=== PATIENT | female | born 1940 | race Caucasian/White ===

== ENCOUNTER 2017-01-07 11:37 | Day surgery (SDC) | payer MEDICARE, BC, MEDICAID ==
[~2017-01-07] VITALS: Ht 165.1 cm; Wt 136.3 kg
--- NOTE | 2017-01-07 08:47 | NUR ---
NN UNABLE TO MAKE CONTACT WITH PT YESTERDAY IN REGARDS TO HER PROCEDURE FOR TODAY. CALLED CONTACT NUMBER LISTED IN HER DEMOGRAPHICS IN OUR COMPUTER SYSTEM. THERE WAS NO OTHER NUMBER LISTED FOR THIS PT AND THE NUMBER I CALLED WAS A CRYSTAL FROM [employer]. I WAS UNABLE TO MAKE OUT WHAT WAS ON HER ANSWERING MACHINE. I ATTEMPTED TO CALL DR. ESCOBAR OFFICE TO OBTAIN ANOTHER CONTACT NUMBER FOR THIS BUT HAD TO LEAVE A VOICE MAIL AND DID NOT GET A RETURN PHONE CALL YESTERDAY. I DID CALL BACK THE ONLY NUMBER I HAD AND LEFT A VERY DETAILED MESSAGE REGARDING NEEDING TO GIVE INFORMATION ABOUT A PT HAVING SURGERY. I LEFT RETURN NUMBERS AND ASKED THEM TO PLEASE CALL ME, BUT DID NOT HEAR ANYTHING BACK YESTERDAY. TODAY DR. ESCOBAR'S OFFICE DID CALL AND LEFT A MESSAGE WITH ANOTHER NUMBER FOR THE PT. WILL ATTEMPT TO CONTACT THE PT AT THIS NUMBER.
--- NOTE | 2017-01-07 08:59 | NUR ---
NN ATTEMPTED TO REACH SOMEONE AT THE NUMBER GIVEN TO ME BY DR. ESCOBAR'S OFFICE. THERE WAS NO ANSWER AND NO VOICE MAIL WAS AVAILABLE.
[~2017-01-07 11:37] MED LIST: ALLO300T2 PO; ASPI-557 PO; ATOR20TA59 PO; DIGO125T17 PO; FENTANYL 100mcg/2ml INJECTION ONE; FURO40TA5 PO; GABA-338 PO; HYDR-3989 PO; LIDOCAINE JELLY 2% 30ml TUBE ONE; LISI-625 PO; LORA1TAB3 PO; MAGN400T6 PO; MELA3TAB30 PO; METF850T2 PO; METO50TA5 PO; RANI150T12 PO; SERT50TA12 PO; TOLT4CAP13 PO
--- OUTSIDE RECORDS SUMMARY | 2017-01-07 11:42 | XMS REPORT | Continuity of Care Document ---
Author Author [facility] Organization [facility] Address Unknown Phone Unavailable Allergies Active Description Code Type Severity Reaction Onset Reported/Identified Relationship to Patient Clinical Status Yes Iron Drug Allergy uNspecfied 10/07/2009 Yes Iron Drug Allergy N/A uNspecfied 10/07/2009 Yes Dextran Drug Allergy Adverse Reaction 06/06/2010 Yes Dextran Drug Allergy N/A Adverse Reaction 06/06/2010 Yes No Known Food Allergies Food Allergy 12/20/2012 Yes No Allergy Information Drug Allergy N/A N/A 03/15/2014 Medications Problems Date Dx Coded Attending Type Code Diagnosis Diagnosed By 10/20/2012 Huber Moe MD Final 112.3 CUTANEOUS CANDIDIASIS 10/20/2012 Huber Moe MD Final 250.00 DM2/NOS UNCOMP NSU 10/20/2012 Huber Moe MD Final 272.4 HYPERLIPIDEMIA NEC NOS 10/20/2012 Huber Moe MD Final 401.9 HYPERTENSION NOS 10/20/2012 Huber Moe MD 782.0 SKIN SENSATION DISTURB 10/20/2012 Huber Moe MD Admitting 782.1 NONSP SKIN ERUPTION NEC 11/12/2012 Tanya Aceves MD Final 250.00 DM2/NOS UNCOMP NSU 11/12/2012 Tanya Aceves MD Final 274.9 GOUT NOS 11/12/2012 Tanya Aceves MD Final 278.01 MORBID OBESITY 11/12/2012 Tanya Aceves MD Final 300.02 GENERAL ANXIETY DISORD 11/12/2012 Tanya Aceves MD Final 311 DEPRESSIVE DISORDER NEC 11/12/2012 Tanya Aceves MD Final 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 11/12/2012 Tanya Aceves MD Final 401.9 HYPERTENSION NOS 11/12/2012 Tanya Aceves MD Final 427.31 ATRIAL FIBRILLATION 11/12/2012 Tanya Aceves MD Final 428.0 CHF NOS 11/12/2012 Tanya Aceves MD Final 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 11/12/2012 Tanya Aceves MD Final 553.3 DIAPHRAGMATIC HERNIA 11/12/2012 Tanya Aceves MD Final V10.05 HX LARGE INTESTINE CA 11/12/2012 Tanya Aceves MD Final V58.61 LONG-TERM ANTICOAG USE 11/12/2012 Tanya Aceves MD Final V67.09 SURGERY FOLLOW-UP NEC 11/12/2012 Tanya Aceves MD Final V85.43 BMI 50.0-59.9 ADULT 12/06/2012 Admitting V76.12 SCREEN MAMMOGRAPHY NEC 12/20/2012 Nain Simmons MD Final 250.00 DM2/NOS UNCOMP NSU 12/20/2012 Nain Simmons MD Final 401.9 HYPERTENSION NOS 12/20/2012 Nain Simmons MD Final 459.81 VENOUS INSUFFICIENCY NOS 12/20/2012 Nain Simmons MD Final 496 CHRONIC AIRWAY OBSTR NEC 12/20/2012 Nain Simmons MD Final 790.92 ABN COAGULATION PROFILE 12/20/2012 Nain Simmons MD Final 922.1 CONTUSION OF CHEST WALL 12/20/2012 Nain Simmons MD External E928.9 ACCIDENT NOS 12/20/2012 Nain Simmons MD Final V58.61 LONG-TERM ANTICOAG USE 01/11/2013 Admitting V76.12 SCREEN MAMMOGRAPHY NEC 01/17/2013 Admitting V76.12 SCREEN MAMMOGRAPHY NEC 02/02/2013 Admitting V76.12 SCREEN MAMMOGRAPHY NEC 12/18/2013 Sohail Hua MD Final 250.00 DM2/NOS UNCOMP NSU 12/18/2013 Sohail Hua MD Final 278.01 MORBID OBESITY 12/18/2013 Sohail Hua MD Final 401.9 HYPERTENSION NOS 12/18/2013 Sohail Hua MD Final 427.31 ATRIAL FIBRILLATION 12/18/2013 Sohail Hua MD Final 428.0 CHF NOS 12/18/2013 Sohail Hua MD Final 786.50 CHEST PAIN NOS 12/18/2013 Sohail Hua MD Final V15.81 HX NONCOMPLIANCE MED TX 03/15/2014 Oumou Trevizo MD Final 250.00 DM2/NOS UNCOMP NSU 03/15/2014 Oumou Trevizo MD Final 401.9 HYPERTENSION NOS 03/15/2014 Oumou Trevizo MD W Final 427.31 ATRIAL FIBRILLATION 03/15/2014 Oumou Trevizo MD Final 428.0 CHF NOS 03/15/2014 Oumou Trevizo MD Final 473.9 CHRONIC SINUSITIS NOS 03/15/2014 Oumou Trevizo MD 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 Visit Date/Time Discharge Status Pt. Type Provider Facility Loc./Unit Complaint [id number] 03/15/2014 14:20:00 2013 16:50:00 DIS Emergency Oumou Trevizo MD [facility] [id number] 12/18/2013 16:55:00 2013 18:24:00 DIS Emergency Sohail Hua MD [facility] [id number] 02/02/2013 14:00:00 2012 23:59:59 CLS Outpatient [id number] 01/17/2013 14:10:00 2012 23:59:59 CLS Outpatient [id number] 01/11/2013 11:30:00 2012 23:59:59 CLS Outpatient [id number] 12/20/2012 13:58:00 2012 15:54:00 DIS Emergency Nain Simmons MD [facility] [id number] 12/06/2012 15:20:00 2012 23:59:59 CLS Outpatient [id number] 11/12/2012 06:20:00 2012 10:00:00 DIS Outpatient Tanya Aceves MD [facility] [id number] 10/20/2012 13:39:00 2011 16:52:00 DIS Emergency Huber Moe MD [facility]
--- OUTSIDE RECORDS SUMMARY | 2017-01-07 11:42 | XMS REPORT | Referral Summary ---
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 Name Role Phone RitchieVictor M Primary Care Physician [phone] Encounter VC Date(s): 11/05/14 - 11/09/[id number] [place] [address] Discharge Disposition: Home or Self Care Attending Physician: Lashonda Heredia DO Admitting Physician: Sarmad Camacho MD Referring Physician: Self Referred, X Vital Signs Most recent to 1 2 oldest [Reference Range]: Temperature Oral 36.4 degC [35.8-37.3 degC] (11/09/14 11:11 AM) Temperature Tympanic 37.2 degC 37.2 degC [36.6-38.1 degC] (11/07/14 8:00 AM) (11/07/14 8:00 AM) Temperature Temporal 36.9 degC Artery [36.3-37.8 (11/07/14 4:45 PM) degC] Apical Heart Rate 77 bpm [60-100 bpm] (11/09/14 1:07 PM) Peripheral Pulse 91 bpm Rate [60-100 bpm] (11/09/14 11:11 AM) Heart Rate Monitored 100 bpm 101 bpm [60-100 bpm] (11/09/14 1:13 PM) *HI* (11/09/14 1:13 PM) Respiratory Rate 20 br/min [14-20 br/min] (11/09/14 1:13 PM) Blood Pressure 137/78 mmHg [90-140/60-90 mmHg] (11/09/14 11:11 AM) Mean Arterial 90 mmHg Pressure, Cuff (11/07/14 11:00 AM) Most recent to 1 2 oldest [Reference Range]: SpO2 95 % (11/09/14 11:11 AM) Problem List Condition Effective Dates Status Health Status Informant Acute Active pain(Confirmed) At risk for Active infection(Confirmed) 1 At risk of pressure Active sore(Confirmed) Afib(Confirmed) Active Chronic Active CHF(Confirmed) Diabetes(Confirmed) Active Heart Active failure(Confirmed) HTN Active (hypertension)(Confi rmed) Impaired gas Active exchange(Confirmed)2 Tissue perfusion Active alteration(Confirmed )3 Lower extremity Active venous stasis(Confirmed) VRE(Confirmed)4 < 08/31/14 Resolved 1Problem added automatically by system based on initiation of At Risk for Infection in Nutrition Plan of Care 2Problem added automatically by system based on initiation of Impaired Gas Exchange Plan of Care 3Problem added automatically by system based on initiation of Tissue Perfusion Cerebral Plan of Care 4VRE (perineal wound) culture dated 12/07/2013 - no new cultures - RESOLVED. Allergies, Adverse Reactions, Alerts Substance Reaction Severity Status Feosol Iron1 Medium Active 1loweres blood pressure Medications albuterol 5 mg/mL (0.5%) inhalation solution 0.5 mL, NEB, [id number], # 60 mL, 0 Refill(s), other reason (Rx) Start Date: 11/09/14 Status: Ordered allopurinol 300 mg, Oral, Daily, 0 Refill(s) Start Date: 08/30/14 Status: Ordered Benadryl 25 mg, Oral, q8hr, as needed for itching, 0 Refill(s) Start Date: 11/05/14 Status: Ordered digoxin 125 mcg (0.125 mg) oral tablet 1 tabs, Oral, Daily, # 30 tabs, 0 Refill(s), other reason (Rx) Start Date: 11/09/14 Status: Ordered gabapentin 300 mg, Oral, BID, 0 Refill(s) Start Date: 08/30/14 Status: Ordered glipiZIDE 5 mg, Oral, Daily, 0 Refill(s) Start Date: 11/05/14 Status: Ordered HYDROcodone-acetaminophen 5 mg-325 mg oral tablet 2 tabs, Oral, q4hr, as needed for pain, 1-2 tablets by mouth every 4 hours as needed for pain, 0 Refill(s) Special Instructions: 1-2 tablets by mouth every 4 hours as needed for pain Start Date: 09/05/14 Status: Ordered Imodium A-D 2 mg, Oral, q6hr, loose stools, 0 Refill(s) Start Date: 10/02/14 Status: Ordered Macrobid 100 mg oral capsule 1 caps, Oral, BID, # 14 caps, 0 Refill(s), other reason (Rx) Start Date: 11/09/14 Stop Date: 11/17/14 Status: Ordered magnesium oxide 400 mg, Oral, BID, 0 Refill(s) Start Date: 11/05/14 Status: Ordered metFORMIN 850 mg, Oral, BID, 0 Refill(s) Start Date: 08/30/14 Status: Ordered metoprolol tartrate 50 mg oral tablet Oral, BID, 0 Refill(s) Start Date: 11/09/14 Status: Ordered MiraLax 17 g, Oral, BID, Constipation, 0 Refill(s) Start Date: 11/05/14 Status: Ordered sertraline 75 mg, Oral, Daily, 0 Refill(s) Start Date: 08/30/14 Status: Ordered simvastatin 20 mg, Oral, Bedtime (once a day), 0 Refill(s) Start Date: 08/30/14 Status: Ordered Tylenol Extra Strength 1,000 mg, Oral, TID, as needed for pain, 0 Refill(s) Start Date: 08/30/14 Status: Ordered warfarin 5 mg, Oral, Daily, 0 Refill(s) Start Date: 08/30/14 Status: Ordered Xanax 0.25 mg, Oral, as needed for anxiety, give 0.25mg during the night as needed., 0 Refill(s) Special Instructions: give 0.25mg during the night as needed. Start Date: 08/30/14 Status: Ordered Xanax 0.25 mg, Oral, QID, 0600, 1000, 1400, 1800, 0 Refill(s) Special Instructions: 0600, 1000, 1400, 1800 Start Date: 10/02/14 Status: Ordered Results Hematology Most recent to 1 oldest [Reference Range]: WBC [4.8-10.8 K/uL] 9.6 K/uL (11/09/14 5:24 AM) RBC [4.00-5.20 M/uL] 4.05 M/uL (11/09/14 5:24 AM) Hgb [12.0-16.0 11.8 gm/dL gm/dL] *LOW* (11/09/14 5:24 AM) Hct [37.0-47.0 %] 39.6 % (11/09/14 5:24 AM) MCV [82.0-99.0 fL] 97.8 fL (11/09/14 5:24 AM) MCH [27.0-32.0 pg] 29.1 pg (11/09/14 5:24 AM) MCHC [32.0-36.0 29.8 gm/dL gm/dL] *LOW* (11/09/14 5:24 AM) RDW [11.5-14.5 %] 15.3 % *HI* (11/09/14 5:24 AM) Platelet [150-400 222 K/uL K/uL] (11/09/14 5:24 AM) MPV [9.4-12.4 fL] 11.1 fL (11/09/14 5:24 AM) Immature 0.2 % Granulocytes (11/09/14 5:24 AM) [0.0-1.0 %] Neutrophils [51-75 71 % %] (11/09/14 5:24 AM) Lymphocytes [20-46 13 % %] *LOW* (11/09/14 5:24 AM) Monocytes [4-11 %] 12 % *HI* (11/09/14 5:24 AM) Eosinophils [0-4 %] 3 % (11/09/14 5:24 AM) Basophils [0-2 %] 0 % (11/09/14 5:24 AM) Neutro Absolute 6.79 THOUS [1.90-7.00 THOUS] (11/09/14 5:24 AM) Lymph Absolute 1.28 THOUS [0.80-3.30 THOUS] (11/09/14 5:24 AM) Catron Absolute 1.16 THOUS [0.30-1.00 THOUS] *HI* (11/09/14 5:24 AM) Eos Absolute 0.32 THOUS [0.00-0.50 THOUS] (11/09/14 5:24 AM) Baso Absolute 0.04 THOUS [0.00-0.20 THOUS] (11/09/14 5:24 AM) Nucleated RBC 0.0 /100 WBC Automated [0 /100 (11/07/14 2:39 AM) WBC] Differential Scanned Slide (11/05/14 9:44 AM) Coagulation Most recent to 1 oldest [Reference Range]: INR [0.9-1.2] 3.4 *HI* (11/09/14 5:24 AM) Chemistry Most recent to 1 oldest [Reference Range]: Sodium Lvl [136-144 136 mEq/L mEq/L] (11/09/14 5:24 AM) Potassium Lvl 4.1 mEq/L [3.6-5.1 mEq/L] (11/09/14 5:24 AM) Chloride [99-109 95 mEq/L mEq/L] *LOW* (11/09/14 5:24 AM) CO2 [22-32 mEq/L] 34 mEq/L *HI* (11/09/14 5:24 AM) AGAP [3-20] 7 (11/09/14 5:24 AM) BUN [4-20 mg/dL] 9 mg/dL (11/09/14 5:24 AM) Glucose Lvl [70-100 107 mg/dL mg/dL] *HI* (11/09/14 5:24 AM) Creatinine Lvl 0.45 mg/dL [0.44-1.03 mg/dL] (11/09/14 5:24 AM) eGFR [>60] >60 3 (11/09/14 5:24 AM) Calcium Lvl 8.7 mg/dL [8.6-10.0 mg/dL] (11/09/14 5:24 AM) Albumin Lvl [3.5-4.8 3.1 gm/dL gm/dL] *LOW* (11/06/14 3:38 AM) Total Protein 6.9 gm/dL [6.1-7.9 gm/dL] (11/05/14 9:44 AM) Globulin [1.9-4.3 3.2 gm/dL gm/dL] (11/05/14 9:44 AM) ALT [14-54 unit/L] 18 unit/L (11/05/14 9:44 AM) AST [15-41 unit/L] 19 unit/L (11/05/14 9:44 AM) Alk Phos [26-104 171 unit/L unit/L] *HI* (11/05/14 9:44 AM) Bili Total [0.2-1.2 1.3 mg/dL 2 mg/dL] *HI* (11/05/14 9:44 AM) Magnesium Lvl 2.1 mg/dL [1.8-2.5 mg/dL] (11/06/14 3:38 AM) Phosphorus [2.4-4.7 4.5 mg/dL 1 mg/dL] (11/06/14 3:38 AM) BNP [0-99 pg/mL] 248 pg/mL *HI* (11/05/14 9:44 AM) Troponin [<0.06 <0.05 ng/mL ng/mL] (11/07/14 2:41 PM) Lactic Acid Lvl 1.4 mEq/L [0.5-2.2 mEq/L] (11/05/14 12:15 PM) Blood Glucose, 62 mg/dL Capillary [74-106 *LOW* mg/dL] (11/09/14 12:56 PM) Blood Glucose, 62 mg/dL Capillary [70-100 *LOW* mg/dL] (11/09/14 12:56 PM) 1Result Comment: High dosages of liposomal Amphotericin B (AmBisome) therapy or other drug preparations that use a liposomal envelope to facilitate drug delivery may cause falsely elevated results for phosphorus. 2Result Comment: Naproxen, specifically the metabolite O-desmethylnaproxen, may cause spurious elevation in Total Bilirubin levels. 3Result Comment: Multiply eGFR results by 1.21 for race. Therapeutic Drug Monitoring Most recent to 1 oldest [Reference Range]: Digoxin Lvl 1.6 [0.8-2.0] (11/07/14 2:39 AM) Urinalysis Most recent to 1 oldest [Reference Range]: UA Color Dk Yellow (11/05/14 4:47 PM) UA Appear Clear (11/05/14 4:47 PM) UA pH [5.0-8.0] 7.0 (11/05/14 4:47 PM) UA Leuk Est Negative [Negative] (11/05/14 4:47 PM) UA Nitrite Positive [Negative] *ABN* (11/05/14 4:47 PM) UA Protein Trace [Negative] *ABN* (11/05/14 4:47 PM) UA Glucose Negative [Negative] (11/05/14 4:47 PM) UA Ketones Trace [Negative] *ABN* (11/05/14 4:47 PM) UA Urobilinogen Negative [<1.0] (11/05/14 4:47 PM) UA Bili [Negative] Negative (11/05/14 4:47 PM) UA Blood [Negative] Negative (11/05/14 4:47 PM) UA Spec Grav 1.027 [1.003-1.030] (11/05/14 4:47 PM) Type Catheter (11/05/14 4:47 PM) UA WBC [0-4] 0-2 (11/05/14 4:47 PM) Epithelial Cells 2-5 (11/05/14 4:47 PM) UA Bacteria Numerous *ABN* (11/05/14 4:47 PM) UA Hyal Cast [0-3] 1-3 (11/05/14 4:47 PM) UA Mucous Present (11/05/14 4:47 PM) Microbiology Reports PROCEDURE: Urine Culture STATUS: Modified/Amended/Cor BODY SITE: SOURCE: Urine COLLECTED DATE/TIME: 11/05/14 4:47 PM ORGANISM:Escherichia coli PROCEDURE: Blood Culture STATUS: Order in Progress BODY SITE: SOURCE: Blood COLLECTED DATE/TIME: 11/05/14 12:15 PM PROCEDURE: Blood Culture1 STATUS: Order in Progress BODY SITE: SOURCE: Blood COLLECTED DATE/TIME: 11/05/14 12:15 PM ORGANISM:Propionibacterium/Corynebacterium species INTERPRETIVE DATA 1Critical value called to and read back by Naveed Hopkins Rn in CCU, at 11/06/2014 13:32 Immunizations No data available for this section Procedures Procedure Date Related Diagnosis Body Site Replacement, complete, of a peripherally 11/09/14 inserted central venous catheter (PICC), without subcutaneous port or pump, through same venous access 25-OCT-2014 00:38:50<$> Resection1 1of large colon Social History Social History Type Response Smoking Status Never smoker Assessment and Plan No data available for this section
--- OUTSIDE RECORDS SUMMARY | 2017-01-07 11:42 | XMS REPORT | Referral Summary ---
Author Organization Unknown Address Unknown Phone Unavailable Care Team Providers Care Freight Caller Name Role Phone Victor M Dugan Primary Care Physician [phone] Encounter VC Date(s): 12/19/14 - 12/22/[id number] [place] [address] Discharge Diagnosis: Altered mental status Discharge Diagnosis: Afib Discharge Diagnosis: Obesity hypoventilation syndrome Discharge Diagnosis: Acute respiratory failure Discharge Diagnosis: HTN (hypertension) Discharge Diagnosis: Diabetes Discharge Diagnosis: Hyperkalemia Discharge Diagnosis: HCAP (healthcare-associated pneumonia) Discharge Diagnosis: Chronic CHF Discharge Diagnosis: Impaired gas exchange Discharge Disposition: Home or Self Care Attending Physician: Lashonda Heredia DO Admitting Physician: Lashonda Heredia DO Vital Signs Most recent to 1 oldest [Reference Range]: Temperature Oral 36.9 degC [35.8-37.3 degC] (12/22/14 11:49 AM) Temperature Temporal 36.5 degC Artery [36.3-37.8 (12/21/14 11:00 AM) degC] Apical Heart Rate 91 bpm [60-100 bpm] (12/22/14 2:14 PM) Peripheral Pulse 101 bpm Rate [60-100 bpm] *HI* (12/22/14 11:49 AM) Heart Rate Monitored 95 bpm [60-100 bpm] (12/22/14 12:59 PM) Respiratory Rate 18 br/min [14-20 br/min] (12/22/14 12:59 PM) Blood Pressure 140/88 mmHg [90-140/60-90 mmHg] (12/22/14 11:49 AM) Mean Arterial 128 mmHg Pressure, Cuff (12/21/14 8:00 AM) Most recent to 1 oldest [Reference Range]: SpO2 95 % (12/22/14 11:49 AM) Problem List Condition Effective Dates Status Health Status Informant Acute Active pain(Confirmed) Acute respiratory Active failure(Confirmed) Altered mental Active status(Confirmed) At risk for activity Active intolerance(Confirme d)1 At risk for Active infection(Confirmed) 2 At risk of pressure Active sore(Confirmed) Afib(Confirmed) Active Chronic Active CHF(Confirmed) Diabetes(Confirmed) Active Obesity Active hypoventilation syndrome(Confirmed) HCAP Active (healthcare-associat ed pneumonia)(Confirmed ) Heart Active failure(Confirmed) Hyperkalemia(Confirm Active ed) HTN Active (hypertension)(Confi rmed) Impaired gas Active exchange(Confirmed)3 Tissue perfusion Active alteration(Confirmed )4 Lower extremity Active venous stasis(Confirmed) VRE(Confirmed)5 < 08/31/14 Resolved 1Problem added automatically by system based on initiation of At Risk for Activity Intolerance Plan of Care 2Problem added automatically by system based on initiation of At Risk for Infection in Nutrition Plan of Care 3Problem added automatically by system based on initiation of Impaired Gas Exchange Plan of Care 4Problem added automatically by system based on initiation of Tissue Perfusion Cerebral Plan of Care 5VRE (perineal wound) culture dated 12/07/2013 - no new cultures - RESOLVED. Allergies, Adverse Reactions, Alerts Substance Reaction Severity Status Feosol Iron1 Medium Active 1loweres blood pressure Medications albuterol 2.5 mg/3 mL (0.083%) inhalation solution 3 mL, Inhalation, q4hr, while awake, 0 Refill(s) Special Instructions: while awake Start Date: 12/19/14 Status: Ordered allopurinol 300 mg, Oral, Daily, 0 Refill(s) Start Date: 08/30/14 Status: Ordered Benadryl 25 mg, Oral, q8hr, as needed for itching, 0 Refill(s) Start Date: 11/05/14 Status: Ordered Yuval Moist Barrier Cream Yuval Moist Barrier Cream, 1 werner, Topical, apply to bilateral lower extremities daily and to coccyx three times daily, 0 Refill(s) Special Instructions: apply to bilateral lower extremities daily and to coccyx three times daily Start Date: 12/19/14 Status: Ordered digoxin 125 mcg, Oral, Daily, 0 Refill(s) Start Date: 12/19/14 Status: Ordered gabapentin 300 mg, Oral, BID, [...] for pain Start Date: 09/05/14 Status: Ordered Klor-Con M20 20 mEq, Oral, Daily, for 3 days for supplement. Starting 12-19-14, 0 Refill(s) Special Instructions: for 3 days for supplement. Starting 12-19-14 Start Date: 12/19/14 Status: Ordered Lasix 40 mg oral tablet 1 tabs, Oral, BID, 0 Refill(s) Start Date: 12/22/14 Status: Ordered LORazepam 0.5 mg oral tablet 1 mg, Oral, BID, as needed for anxiety, for severe anxiety. Do not overuse, concern for confusion and respiratory depression, X 30 days, # 30 tabs, 0 Refill (s), other reason (Rx) Special Instructions: for severe anxiety. Do not overuse, concern for confusion and respiratory depression Start Date: 12/22/14 Stop Date: 01/21/15 Status: Ordered magnesium oxide 400 mg, Oral, BID, 0 Refill(s) Start Date: 11/05/14 Status: Ordered metFORMIN 850 mg, Oral, BID, 0 Refill(s) Start Date: 08/30/14 Status: Ordered metoprolol tartrate 50 mg oral tablet 1 tabs, Oral, BID, 0 Refill(s) Start Date: 11/09/14 Status: Ordered miconazole 2% topical cream 1 werner, Topical, TID, apply to area under RT breast three times daily until healed, 0 Refill(s) Special Instructions: apply to area under RT breast three times daily until healed Start Date: 12/19/14 Status: Ordered nystatin 100,000 units/g topical powder 1 werner, Topical, TID, apply under breas and abd folds three times daily until healed, 0 Refill(s) Special Instructions: apply under breas and abd folds three times daily until healed Start Date: 12/19/14 Status: Ordered omeprazole 20 mg, Oral, Daily, 0 Refill(s) Start Date: 12/19/14 Status: Ordered Robitussin Cough + Chest Congestion DM 10 mL, Oral, q4hr, as needed for cough, 0 Refill(s) Start Date: 12/19/14 Status: Ordered sertraline 75 mg, Oral, Daily, 0 Refill(s) Start Date: 08/30/14 Status: Ordered simvastatin 20 mg, Oral, Bedtime (once a day), 0 Refill(s) Start Date: 08/30/14 Status: Ordered STOPPED MED: Cephalexin 250mg STOPPED MED: Cephalexin 250mg, take one capsule by mouth four times daily for 7 days. STOPPED ON 12-06-14, 0 Refill(s) Special Instructions: take one capsule by mouth four times daily for 7 days. STOPPED ON 12-06-14 Start Date: 12/19/14 Status: Ordered Thera 1 tabs, Oral, Daily, 0 Refill(s) Start Date: 12/19/14 Status: Ordered Tums 1,000 mg, Chewed, q4hr, indigestion, 0 Refill(s) Start Date: 12/19/14 Status: Ordered Tylenol Extra Strength 1,000 mg, Oral, TID, as needed for pain, 0 Refill(s) Start Date: 08/30/14 Status: Ordered warfarin 3 mg, Oral, Daily, 0 Refill(s) Start Date: 08/30/14 Status: Ordered Zoloft 50 mg oral tablet 1 tabs, Oral, Daily, # 30 tabs, 0 Refill(s), Pharmacy: [facility], 1 tabs Oral Daily Start Date: 12/22/14 Status: Ordered Results Blood Gases Most recent to 1 oldest [Reference Range]: pH [7.35-7.45] 7.46 *HI* (12/21/14 10:00 AM) pCO2 Art [35-45 58 mmHg mmHg] *HI* (12/21/14 10:00 AM) Arterial PO2 [80-100 101 mmHg mmHg] *HI* (12/21/14 10:00 AM) Bicarbonate [22-26 40 mEq/L mEq/L] *HI* (12/21/14 10:00 AM) Base Excess Art 14 [0-2] *HI* (12/21/14 10:00 AM) SaO2 Art [90.0-97.0 98.3 % %] *HI* (12/21/14 10:00 AM) LPM Art 3.0 L/min (12/21/14 10:00 AM) O2 Panel Nasal Cannula (12/21/14 10:00 AM) Insp. Pressure 15 (12/19/14 3:10 PM) Set Rate 12 br/min (12/19/14 3:10 PM) FiO2 Art [0-100] 40 (12/19/14 3:10 PM) EPAP 5 (12/19/14 3:10 PM) Total Rate 22 br/min (12/19/14 11:02 PM) Spec Site Radial-L (12/21/14 10:00 AM) Hematology Most recent to 1 oldest [Reference Range]: WBC [4.8-10.8 K/uL] 5.8 K/uL (12/21/14 4:06 AM) RBC [4.00-5.20 M/uL] 4.13 M/uL (12/21/14 4:06 AM) Hgb [12.0-16.0 12.1 gm/dL gm/dL] (12/21/14 4:06 AM) Hct [37.0-47.0 %] 39.4 % (12/21/14 4:06 AM) MCV [82.0-99.0 fL] 95.4 fL (12/21/14 4:06 AM) MCH [27.0-32.0 pg] 29.3 pg (12/21/14 4:06 AM) MCHC [32.0-36.0 30.7 gm/dL gm/dL] *LOW* (12/21/14 4:06 AM) RDW [11.5-14.5 %] 15.5 % *HI* (12/21/14 4:06 AM) Platelet [150-400 198 K/uL K/uL] (12/21/14 4:06 AM) MPV [9.4-12.4 fL] 11.3 fL (12/21/14 4:06 AM) Immature 0.5 % Granulocytes (12/21/14 4:06 AM) [0.0-1.0 %] Neutrophils [51-75 61 % %] (12/21/14 4:06 AM) Lymphocytes [20-46 20 % %] (12/21/14 4:06 AM) Monocytes [4-11 %] 15 % *HI* (12/21/14 4:06 AM) Eosinophils [0-4 %] 4 % (12/21/14 4:06 AM) Basophils [0-2 %] 0 % (12/21/14 4:06 AM) Neutro Absolute 3.55 THOUS [1.90-7.00 THOUS] (12/21/14 4:06 AM) Lymph Absolute 1.15 THOUS [0.80-3.30 THOUS] (12/21/14 4:06 AM) Grand Absolute 0.86 THOUS [0.30-1.00 THOUS] (12/21/14 4:06 AM) Eos Absolute 0.22 THOUS [0.00-0.50 THOUS] (12/21/14 4:06 AM) Baso Absolute 0.02 THOUS [0.00-0.20 THOUS] (12/21/14 4:06 AM) Nucleated RBC 0.0 /100 WBC Automated [0 /100 (12/21/14 4:06 AM) WBC] Coagulation Most recent to 1 oldest [Reference Range]: INR [0.9-1.2] 2.1 *HI* (12/22/14 4:36 AM) Chemistry Most recent to 1 oldest [Reference Range]: Sodium Lvl [136-144 138 mEq/L mEq/L] (12/21/14 4:06 AM) Potassium Lvl 4.0 mEq/L [3.6-5.1 mEq/L] (12/21/14 4:06 AM) Chloride [99-109 90 mEq/L mEq/L] *LOW* (12/21/14 4:06 AM) CO2 [22-32 mEq/L] 42 mEq/L *HI* (12/21/14 4:06 AM) AGAP [3-20] 6 (12/21/14 4:06 AM) BUN [4-20 mg/dL] 12 mg/dL (12/21/14 4:06 AM) Glucose Lvl [70-100 108 mg/dL mg/dL] *HI* (12/21/14 4:06 AM) Creatinine Lvl 0.70 mg/dL [0.44-1.03 mg/dL] (12/21/14 4:06 AM) eGFR [>60] >60 3 (12/21/14 4:06 AM) Calcium Lvl 8.5 mg/dL [8.6-10.0 mg/dL] *LOW* (12/21/14 4:06 AM) Albumin Lvl [3.5-4.8 3.0 gm/dL gm/dL] *LOW* (12/21/14 4:06 AM) Total Protein 6.5 gm/dL [6.1-7.9 gm/dL] (12/19/14 10:43 AM) Globulin [1.9-4.3 2.9 gm/dL gm/dL] (12/19/14 10:43 AM) ALT [14-54 unit/L] 18 unit/L (12/19/14 10:43 AM) AST [15-41 unit/L] 26 unit/L (12/19/14 10:43 AM) Alk Phos [26-104 144 unit/L unit/L] *HI* (12/19/14 10:43 AM) Bili Total [0.2-1.2 0.9 mg/dL 2 mg/dL] (12/19/14 10:43 AM) Phosphorus [2.4-4.7 4.4 mg/dL 1 mg/dL] (12/21/14 4:06 AM) BNP [0-99 pg/mL] 659 pg/mL *HI* (12/19/14 10:43 AM) Troponin [<0.06 0.05 ng/mL ng/mL] (12/19/14 10:43 AM) Blood Glucose, 143 mg/dL Capillary [70-100 *HI* mg/dL] (12/22/14 11:04 AM) Procalcitonin <0.05 ng/mL 4 [0.00-0.09 ng/mL] (12/20/14 4:01 AM) 1Result Comment: High dosages of liposomal Amphotericin B (AmBisome) therapy or other drug preparations that use a liposomal envelope to facilitate drug delivery may cause falsely elevated results for phosphorus. 2Result Comment: Naproxen, specifically the metabolite O-desmethylnaproxen, may cause spurious elevation in Total Bilirubin levels. 3Result Comment: Multiply eGFR results by 1.21 for race. 4Result Comment: Normal: <0.1 ng/mL (infants >72 hrs - adults) Suspected Lower Respiratory Tract Infection 0.10-0.25 ng/mL=Low likelihood for bacterial infection; Antibiotics discouraged. >0.25 ng/mL=Increased likelihood for bacterial infection; Antibiotics encouraged. Suspected Sepsis: Strongly consider initiating antibiotics in all unstable patients. 0.10-0.50 ng/mL=Low likelihood for sepsis; Antibiotics discouraged. >0.50 ng/mL=Increased likelihood for sepsis; Antibiotics encouraged. Decisions on antibiotic use should not be based solely on procalcitonin levels. If antibiotics are administered, repeat procalcitonin testing should be obtained every 2-3 days to consider early antibiotic cessation. PCT is a dynamic biomarker and most useful when trends are analyzed over time in accompaniment with other clinical data. Interpretation should be based upon clinical context and algorithms. Therapeutic Drug Monitoring Most recent to 1 oldest [Reference Range]: Digoxin Lvl 1.6 [0.8-2.0] (12/19/14 10:43 AM) Urinalysis Most recent to 1 oldest [Reference Range]: UA Color Cecelia *ABN* (12/19/14 11:30 AM) UA Appear Clear (12/19/14 11:30 AM) UA pH [5.0-8.0] 7.0 (12/19/14 11:30 AM) UA Leuk Est Negative [Negative] (12/19/14 11:30 AM) UA Nitrite Negative [Negative] (12/19/14 11:30 AM) UA Protein Trace [Negative] *ABN* (12/19/14 11:30 AM) UA Glucose Negative [Negative] (12/19/14 11:30 AM) UA Ketones Negative [Negative] (12/19/14 11:30 AM) UA Urobilinogen 1.0 mg/dL [<1.0 mg/dL] (12/19/14 11:30 AM) UA Bili [Negative] Positive 5 *ABN* (12/19/14 11:30 AM) UA Blood [Negative] Pos 1+ *ABN* (12/19/14 11:30 AM) UA Spec Grav 1.018 [1.003-1.030] (12/19/14 11:30 AM) Type Venous (12/19/14 11:44 AM) UA WBC [0-4] 0-2 (12/19/14 11:30 AM) UA RBC [0-2] 5-10 *ABN* (12/19/14 11:30 AM) Epithelial Cells 0-2 (12/19/14 11:30 AM) UA Hyal Cast [0-3 >12 /LPF /LPF] *ABN* (12/19/14 11:30 AM) UA Yeast Present *ABN* (12/19/14 11:30 AM) 5Result Comment: Positive bilirubin by dipstick. We are unable to exclude color interference due to national backorder of reagents. Please use clinical correlation to determine a positive bilirubin in urine. Microbiology Reports PROCEDURE: Sputum Culture and Smear STATUS: Order in Progress BODY SITE: SOURCE: Sputum COLLECTED DATE/TIME: 12/19/14 2:40 PM PROCEDURE: Blood Culture STATUS: Order in Progress BODY SITE: SOURCE: Blood COLLECTED DATE/TIME: 12/19/14 11:31 AM PROCEDURE: Blood Culture STATUS: Order in Progress BODY SITE: SOURCE: Blood COLLECTED DATE/TIME: 12/19/14 11:31 AM Immunizations No data available for this section Procedures Procedure Date Related Diagnosis Body Site Arterial puncture, withdrawal of blood for 12/21/14 diagnosis Arterial puncture, withdrawal of blood for 12/20/14 diagnosis Arterial puncture, withdrawal of blood for 12/19/14 diagnosis Arterial puncture, withdrawal of blood for 12/19/14 diagnosis Arterial puncture, withdrawal of blood for 12/19/14 diagnosis Insertion of non-indwelling bladder catheter 12/19/14 (eg, straight catheterization for residual urine) Arterial puncture, withdrawal of blood for 12/18/14 diagnosis Cholecystectomy Hysterectomy Resection1 1of large colon Social History Social History Type Response Smoking Status Never smoker Assessment and Plan No data available for this section
--- OUTSIDE RECORDS SUMMARY | 2017-01-07 11:42 | XMS REPORT | Referral Summary ---
Author Organization Unknown Address Unknown Phone Unavailable Care Team Providers Care Signal Tower Operator Name Role Phone Mj Anaya Primary Care Physician [phone] Encounter VC Date(s): 11/28/14 - 11/28/[address] [id number] Discharge Diagnosis: Ambulatory dysfunction Discharge Disposition: Home or Self Care Attending Physician: Federico Ramirez MD Admitting Physician: Federico Ramirez MD Vital Signs Most recent to 1 oldest [Reference Range]: Temperature Oral 36.9 degC [35.8-37.3 degC] (11/28/14 12:57 PM) Peripheral Pulse 88 bpm Rate [60-100 bpm] (11/28/14 6:14 PM) Respiratory Rate 20 br/min [14-20 br/min] (11/28/14 6:14 PM) Blood Pressure 131/92 mmHg [90-140/60-90 mmHg] (11/28/14 6:14 PM) Most recent to 1 oldest [Reference Range]: SpO2 100 % (11/28/14 6:14 PM) Problem List Condition Effective Dates Status Health [...] mg/mL (0.5%) inhalation solution 0.5 mL, NEB, [id number], # 60 mL, 0 Refill(s), other reason [...] 0 Refill(s) Start Date: 10/02/14 Status: Ordered magnesium oxide 400 mg, Oral, [...] 1 oldest [Reference Range]: WBC [4.8-10.8 K/uL] 5.9 K/uL (11/28/14 1:20 PM) RBC [4.00-5.20 M/uL] 4.30 M/uL (11/28/14 1:20 PM) Hgb [12.0-16.0 12.5 gm/dL gm/dL] (11/28/14 1:20 PM) Hct [37.0-47.0 %] 42.1 % (11/28/14 1:20 PM) MCV [82.0-99.0 fL] 97.9 fL (11/28/14 1:20 PM) MCH [27.0-32.0 pg] 29.1 pg (11/28/14 1:20 PM) MCHC [32.0-36.0 29.7 gm/dL gm/dL] *LOW* (11/28/14 1:20 PM) RDW [11.5-14.5 %] 15.4 % *HI* (11/28/14 1:20 PM) Platelet [150-400 203 K/uL K/uL] (11/28/14 1:20 PM) MPV [9.4-12.4 fL] 11.4 fL (11/28/14 1:20 PM) Immature 0.2 % Granulocytes (11/28/14 1:20 PM) [0.0-1.0 %] Neutrophils [51-75 65 % %] (11/28/14 1:20 PM) Lymphocytes [20-46 17 % %] *LOW* (11/28/14 1:20 PM) Monocytes [4-11 %] 17 % *HI* (11/28/14 1:20 PM) Eosinophils [0-4 %] 1 % (11/28/14 1:20 PM) Basophils [0-2 %] 0 % (11/28/14 1:20 PM) Neutro Absolute 3.88 THOUS [1.90-7.00 THOUS] (11/28/14 1:20 PM) Lymph Absolute 1.01 THOUS [0.80-3.30 THOUS] (11/28/14 1:20 PM) [place] Absolute 0.98 THOUS [0.30-1.00 THOUS] (11/28/14 1:20 PM) Eos Absolute 0.04 THOUS [0.00-0.50 THOUS] (11/28/14 1:20 PM) Baso Absolute 0.01 THOUS [0.00-0.20 THOUS] (11/28/14 1:20 PM) Nucleated RBC 0.0 /100 WBC Automated [0 /100 (11/28/14 1:20 PM) WBC] Chemistry Most recent to 1 oldest [Reference Range]: Sodium Lvl [136-144 135 mEq/L mEq/L] *LOW* (11/28/14 1:20 PM) Potassium Lvl 4.4 mEq/L [3.6-5.1 mEq/L] (11/28/14 1:20 PM) Chloride [99-109 90 mEq/L mEq/L] *LOW* (11/28/14 1:20 PM) CO2 [22-32 mEq/L] 36 mEq/L *HI* (11/28/14 1:20 PM) AGAP [3-20] 9 (11/28/14 1:20 PM) BUN [4-20 mg/dL] 9 mg/dL (11/28/14 1:20 PM) Glucose Lvl [70-100 70 mg/dL mg/dL] (11/28/14 1:20 PM) Creatinine Lvl 0.53 mg/dL [0.44-1.03 mg/dL] (11/28/14 1:20 PM) eGFR [>60] >60 2 (11/28/14 1:20 PM) Calcium Lvl 8.5 mg/dL [8.6-10.0 mg/dL] *LOW* (11/28/14 1:20 PM) Albumin Lvl [3.5-4.8 3.4 gm/dL gm/dL] *LOW* (11/28/14 1:20 PM) Total Protein 6.3 gm/dL [6.1-7.9 gm/dL] (11/28/14 1:20 PM) Globulin [1.9-4.3 2.9 gm/dL gm/dL] (11/28/14 1:20 PM) ALT [14-54 unit/L] 13 unit/L *LOW* (11/28/14 1:20 PM) AST [15-41 unit/L] 19 unit/L (11/28/14 1:20 PM) Alk Phos [26-104 156 unit/L unit/L] *HI* (11/28/14 1:20 PM) Bili Total [0.2-1.2 0.8 mg/dL 1 mg/dL] (11/28/14 1:20 PM) 1Result Comment: Naproxen, specifically the metabolite O-desmethylnaproxen, may cause spurious elevation in Total Bilirubin levels. 2Result Comment: Multiply eGFR results by 1.21 for race. Urinalysis Most recent to 1 oldest [Reference Range]: UA Color Cecelia *ABN* (11/28/14 3:17 PM) UA Appear Clear (11/28/14 3:17 PM) UA pH [5.0-8.0] 7.0 (11/28/14 3:17 PM) UA Leuk Est Negative [Negative] (11/28/14 3:17 PM) UA Nitrite Negative [Negative] (11/28/14 3:17 PM) UA Protein Trace [Negative] *ABN* (11/28/14 3:17 PM) UA Glucose Negative [Negative] (11/28/14 3:17 PM) UA Ketones Negative [Negative] (11/28/14 3:17 PM) UA Urobilinogen 1.0 mg/dL [<1.0 mg/dL] (11/28/14 3:17 PM) UA Bili [Negative] Positive 3 *ABN* (11/28/14 3:17 PM) UA Blood [Negative] Trace *ABN* (11/28/14 3:17 PM) UA Spec Grav 1.027 [1.003-1.030] (11/28/14 3:17 PM) Type Catheter (11/28/14 3:17 PM) UA WBC [0-4] 2-5 (11/28/14 3:17 PM) UA RBC [0-2] 0-2 (11/28/14 3:17 PM) Epithelial Cells 0-2 (11/28/14 3:17 PM) UA Bacteria Rare (11/28/14 3:17 PM) UA Hyal Cast [0-3 >12 /LPF /LPF] *ABN* (11/28/14 3:17 PM) UA Yeast Present *ABN* (11/28/14 3:17 PM) UA Mucous Present (11/28/14 3:17 PM) 3Result Comment: Positive bilirubin by dipstick. We are unable to exclude color interference due to national backorder of reagents. Please use clinical correlation to determine a positive bilirubin in urine. Immunizations No data available for this section Procedures Procedure Date Related Diagnosis Body Site Resection1 1of large colon Social History Social History Type Response Smoking Status Never smoker Assessment and Plan No data available for this section
--- OUTSIDE RECORDS SUMMARY | 2017-01-07 11:42 | XMS REPORT | Referral Summary ---
Author Organization Unknown Address Unknown Phone Unavailable Care Team Providers Care Med Dir Name Role Phone Victor M Dugan Primary Care Physician [phone] Encounter VC Date(s): 11/29/14 - 11/29/[id number] [place] [address] Discharge Diagnosis: Bacterial urinary tract infection Discharge Disposition: Half-Way Facility Attending Physician: Emanuel Lundberg MD Admitting Physician: Emanuel Lundberg MD Vital Signs Most recent to 1 oldest [Reference Range]: Temperature Oral 36.7 degC [35.8-37.3 degC] (11/29/14 8:54 AM) Peripheral Pulse 145 bpm Rate [60-100 bpm] *HI* (11/29/14 8:54 AM) Heart Rate Monitored 129 bpm [60-100 bpm] *HI* (11/29/14 2:00 PM) Respiratory Rate 28 br/min [14-20 br/min] *HI* (11/29/14 2:00 PM) Blood Pressure 162/125 mmHg [90-140/60-90 mmHg] *HI* (11/29/14 2:00 PM) Mean Arterial 143 mmHg Pressure, Cuff (11/29/14 2:00 PM) Most recent to 1 oldest [Reference Range]: SpO2 100 % (11/29/14 2:00 PM) Problem List Condition Effective Dates Status [...] mg/mL (0.5%) inhalation solution 0.5 mL, NEB, [id number], # 60 mL, 0 Refill(s), other reason [...] 0 Refill(s) Start Date: 10/02/14 Status: Ordered Keflex 250 mg oral capsule 1 caps, Oral, QID, X 7 days, # 28 caps, 0 Refill(s) Start Date: 11/29/14 Stop Date: 12/06/14 Status: Ordered magnesium oxide 400 mg, Oral, [...] 1 oldest [Reference Range]: WBC [4.8-10.8 K/uL] 4.7 K/uL *LOW* (11/29/14 10:55 AM) RBC [4.00-5.20 M/uL] 4.13 M/uL (11/29/14 10:55 AM) Hgb [12.0-16.0 12.0 gm/dL gm/dL] (11/29/14 10:55 AM) Hct [37.0-47.0 %] 40.6 % (11/29/14 10:55 AM) MCV [82.0-99.0 fL] 98.3 fL (11/29/14 10:55 AM) MCH [27.0-32.0 pg] 29.1 pg (11/29/14 10:55 AM) MCHC [32.0-36.0 29.6 gm/dL gm/dL] *LOW* (11/29/14 10:55 AM) RDW [11.5-14.5 %] 15.2 % *HI* (11/29/14 10:55 AM) Platelet [150-400 187 K/uL K/uL] (11/29/14 10:55 AM) MPV [9.4-12.4 fL] 11.1 fL (11/29/14 10:55 AM) Immature 0.2 % Granulocytes (11/29/14 10:55 AM) [0.0-1.0 %] Neutrophils [51-75 62 % %] (11/29/14 10:55 AM) Lymphocytes [20-46 23 % %] (11/29/14 10:55 AM) Monocytes [4-11 %] 13 % *HI* (11/29/14 10:55 AM) Eosinophils [0-4 %] 2 % (11/29/14 10:55 AM) Basophils [0-2 %] 0 % (11/29/14 10:55 AM) Neutro Absolute 2.94 THOUS [1.90-7.00 THOUS] (11/29/14 10:55 AM) Lymph Absolute 1.08 THOUS [0.80-3.30 THOUS] (11/29/14 10:55 AM) [place] Absolute 0.62 THOUS [0.30-1.00 THOUS] (11/29/14 10:55 AM) Eos Absolute 0.07 THOUS [0.00-0.50 THOUS] (11/29/14 10:55 AM) Baso Absolute 0.02 THOUS [0.00-0.20 THOUS] (11/29/14 10:55 AM) Coagulation Most recent to 1 oldest [Reference Range]: INR [0.9-1.2] 4.9 1 *HHI* (11/29/14 10:55 AM) D-Dimer [0-600] 347 2 (11/29/14 10:55 AM) 1Result Comment: Critical value called, and read-back verified. Called to Rick Veliz RN in ER at 11/29/2014 11:51 2Result Comment: A D Dimer result of <500 ng/mL FEU has a negative predictive value of approximately 100% for the exclusion of DVT and acute PE. Chemistry Most recent to 1 oldest [Reference Range]: Sodium Lvl [136-144 129 mEq/L mEq/L] *LOW* (11/29/14:55 AM) Potassium Lvl 4.3 mEq/L [3.6-5.1 mEq/L] (11/29/14:55 AM) Chloride [99-109 93 mEq/L mEq/L] *LOW* (11/29/14: AM) CO2 [22-32 mEq/L] 35 mEq/L *HI* (11/29/14:55 AM) AGAP [3-20] 1 *LOW* (11/29/14: AM) BUN [4-20 mg/dL] 8 mg/dL (11/29/14: AM) Glucose Lvl [70-100 79 mg/dL mg/dL] (11/29/14: AM) Creatinine Lvl 0.61 mg/dL [0.44-1.03 mg/dL] (11/29/14:55 AM) eGFR [>60] >60 4 (11/29/14:55 AM) Calcium Lvl 8.4 mg/dL [8.6-10.0 mg/dL] *LOW* (11/29/14: AM) Albumin Lvl [3.5-4.8 3.1 gm/dL gm/dL] *LOW* (11/29/14: AM) Total Protein 5.9 gm/dL [6.1-7.9 gm/dL] *LOW* (11/29/14:55 AM) Globulin [1.9-4.3 2.8 gm/dL gm/dL] (11/29/14 10:55 AM) ALT [14-54 unit/L] 12 unit/L *LOW* (11/29/14:55 AM) AST [15-41 unit/L] 18 unit/L (11/29/14 10:55 AM) Alk Phos [26-104 147 unit/L unit/L] *HI* (11/29/14 10:55 AM) Bili Total [0.2-1.2 1.1 mg/dL 3 mg/dL] (11/29/14 10:55 AM) Troponin [<0.06 <0.05 ng/mL ng/mL] (11/29/14 10:55 AM) 3Result Comment: Naproxen, specifically the metabolite O-desmethylnaproxen, may cause spurious elevation in Total Bilirubin levels. 4Result Comment: Multiply eGFR results by 1.21 for race. Urinalysis Most recent to 1 oldest [Reference Range]: UA Color Dk Yellow (11/29/14 10:55 AM) UA Appear Clear (11/29/14 10:55 AM) UA pH [5.0-8.0] 7.0 (11/29/14 10:55 AM) UA Leuk Est Pos 2+ [Negative] *ABN* (11/29/14 10:55 AM) UA Nitrite Negative [Negative] (11/29/14 10:55 AM) UA Protein Negative [Negative] (11/29/14 10:55 AM) UA Glucose Negative [Negative] (11/29/14 10:55 AM) UA Ketones Pos 1+ [Negative] *ABN* (11/29/14 10:55 AM) UA Urobilinogen Negative [<1.0] (11/29/14 10:55 AM) UA Bili [Negative] Positive 5 *ABN* (11/29/14 10:55 AM) UA Blood [Negative] Pos 1+ *ABN* (11/29/14 10:55 AM) UA Spec Grav 1.020 [1.003-1.030] (11/29/14 10:55 AM) Type Voided (11/29/14 10:55 AM) UA WBC [0-4] 5-10 *ABN* (11/29/14 10:55 AM) UA RBC [0-2] 2-5 (11/29/14 10:55 AM) Epithelial Cells 2-5 (11/29/14 10:55 AM) UA Bacteria Occasional *ABN* (11/29/14 10:55 AM) UA Hyal Cast [0-3] 1-3 (11/29/14 10:55 AM) UA Mucous Present (11/29/14 10:55 AM) 5Result Comment: Positive bilirubin by dipstick. We are unable to exclude color interference due to national backorder of reagents. Please use clinical correlation to determine a positive bilirubin in urine. Immunizations No data available for this section Procedures Procedure Date Related Diagnosis Body Site Cholecystectomy Hysterectomy Resection1 1of large colon Social History Social History Type Response Smoking Status Never smoker Assessment and Plan No data available for this section
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
[2017-01-07 11:55] VITALS: BP 137/88; PULSE 92; RESP 18; TEMP 98.2; O2SAT 93
[2017-01-07] MEDS: MOXIFLOXACIN 0.5% EYE DROPS 3ml RIGHT EYE SCH ×3 (12:33→12:57)
[2017-01-07] MEDS: NEPAFENAC 0.1% EYE DROPS 3ml RIGHT EYE SCH ×3 (12:33→12:57)
[2017-01-07] MEDS: TROPICAMIDE 1% EYE DROPS 3ml RIGHT EYE SCH ×3 (12:33→12:56)
[2017-01-07] MEDS: CYCLOPENTOLATE 2% EYE DROPS 2ml RIGHT EYE SCH ×3 (12:33→12:58)
[2017-01-07] MEDS: PHENYLEPHRINE 2.5% EYE DROPS 5ml RIGHT EYE SCH ×3 (12:34→12:57)
[2017-01-07] MEDS: PROPARACAINE 0.5% EYE DROPS 15ml RIGHT EYE SCH ×3 (12:34→12:57)
[2017-01-07 12:44] VITALS: Ht 165.1 cm; Wt 136.3 kg
--- NOTE | 2017-01-07 13:13 | ANESPREOP ---
Anesthesia Record Date and Time DATE: 01/07/17 TIME: 13:11 Pre-Op Diagnosis cataract od Proposed Surgical Procedure PE WITH IOL OD NPO since: 2199 Allergies: Coded Allergies: iron dextran complex (Unverified Allergy, Unknown, 01/06/17) Ht/Wt/BMI Height: 5 ' 5.00 " Weight: 136.300 kg BMI: 50.0 kg/m2 Vital Signs Date Time Temp Pulse Resp B/P Pulse Ox O2 Delivery O2 Flow Rate FiO2 01/07/17 11:55 98.2 92 18 137/88 93 Room Air Medications Inpatient Medications Current Medications Medications (Trade) Dose Ordered Sig/Maribel Start Time Stop Time Status Last Admin Dose Admin Cyclopentolate HCl (Cyclogyl 2%) 1 drop Q5M 01/07/17 16:00 01/07/17 16:11 01/07/17 12:58 1 DROP Tropicamide (Mydriacyl 1% Eye Drops) 1 drop Q5M 01/07/17 16:00 01/07/17 16:11 01/07/17 12:56 1 DROP Proparacaine HCl (Alcaine 0.5% Eye Drops) 1 drop Q5M 01/07/17 16:00 01/07/17 16:11 01/07/17 12:57 1 DROP Phenylephrine HCl (Wan-Synephrine 2.5% Eye Drops) 1 drop Q5M 01/07/17 16:00 01/07/17 16:11 01/07/17 12:57 1 DROP Tetracaine HCl (Tetracaine 0.5% Eye Drops) 1 drop PRN PRN 01/07/17 16:00 Moxifloxacin HCl (Vigamox) 1 drop Q5M 01/07/17 16:00 01/07/17 16:11 01/07/17 12:57 1 DROP Nepafenac (Nevanac 0.1% Eye Drops) 1 drop Q5M 01/07/17 16:00 01/07/17 16:11 01/07/17 12:57 1 DROP Allopurinol (Allopurinol) 300 Mg Tablet, 1 TAB PO DAILY, (Reported) Last Taken: on 01/07/17 1000 Aspirin (Aspir 81) 81 Mg Tablet.dr, 1 TAB PO DAILY, (Reported) Last Taken: on 01/06/17 Atorvastatin Calcium (Atorvastatin Calcium) 20 Mg Tablet, 1 TAB PO HS, (Reported) Last Taken: on 01/06/171999 Digoxin (Digox) 125 Mcg Tablet, 1 TAB PO DAILY, (Reported) Last Taken: on 01/07/17999 Furosemide (Furosemide) 40 Mg Tablet, 1 TAB PO DAILY, (Reported) Last Taken: on 01/07/17999 Gabapentin (Gabapentin) 300 Mg Capsule, 1 CAP PO BID, (Reported) Last Taken: on 01/07/17999 Hydrocodone/Apap ([place] 5-325 Tablet) 5-325 Tablet, 1 TAB PO Q4HPRN, (Reported) Last Taken: on 01/07/17999 Lisinopril (Lisinopril) 5 Mg Tablet, 1 TAB PO DAILY, (Reported) Last Taken: on 01/07/17999 Lorazepam (Lorazepam) 1 Mg Tablet, 1 TAB PO Q3DAY PRN for ANXIETY, (Reported) Last Taken: on Unknown Date & Time Magnesium Oxide (Magnesium Oxide) 400 Mg Tablet, 1 TAB PO BID, (Reported) Last Taken: on 01/07/17999 Melatonin (Melatonin) 3 Mg Tablet, 1 TAB PO HS, (Reported) Last Taken: on 01/06/171999 Metformin HCl (Metformin HCl) 850 Mg Tablet, 1 TAB PO BID, (Reported) Last Taken: on 01/06/17 1700 Metoprolol Tartrate (Metoprolol Tartrate) 50 Mg Tablet, 50 MG PO WB, (Reported) Take 1 tablet, by mouth, one time a day (with breakfast). Last Taken: on 01/07/17999 Ranitidine HCl (Zantac) 150 Mg Tablet, 150 MG PO BID, (Reported) Take 1 tablet, by mouth, 2 times a day. Last Taken: on 01/07/17999 Sertraline (Sertraline) 50 Mg Tablet, 1 TAB PO DAILY, (Reported) Last Taken: on 01/07/17999 Tolterodine Tartrate (Tolterodine Tartrate ER) 4 Mg Cap.er.24h, 1 TAB PO DAILY, (Reported) Last Taken: on 01/07/17999 Currently on Beta Noel: No Medical/Surgical History Anesthesia PMH: Reports: *Diabetes (TYPE 2), *Dyspnea (WITH EXERTION), * Hypertension, Arthritis (OA), CHF, Cancer (COLON, 2005), Cardiac Arrythmia, Denies: *Angina, *AL, Anesthesia Reactions, Asthma, Blood Transfusion Reac, COPD , Deep Vein Thrombosis, Hepatitis, Hiatal Hernia, Malignant Hyperthermia, Pneumonia, Reflux, Renal Disease, Sleep Apnea, Tuberculosis Smoking Status: Never smoker Has pt. smoked today?: No Use Chewing Tobacco?: No Second Hand Exposure: No Substance Use Type: does not use Alcohol Intake: none HX of Last Menstrual Period: HYST Past Surgical History Orthopedic Surgeries: No Abdominal Surgeries: Yes - GLENN, COLON RESECTION Genitourinary Surgeries: Yes - STENTS X3 Cardiac Surgeries: Endocrine Surgeries: Reproductive Surgeries: Yes - HYSTERECTOMY, BREAST BX Neurological Surgeries: Ear Surgeries: Nose Surgeries: Throat Surgeries: Other Surgeries: Yes - HYSTERECTOMY Anesthesia Adverse Reactions: FOUND none Family Hx of Anesthesia Advers: none Hx of Motion Sickness: No Pertinent Findings EKG Rhythm: Atrial Fibrillation Physical Exam Respiratory: Lungs clear Cardiovascular: FOUND Irregularly irregular, FOUND Systolic murmur Airway Assessment Mallampati Score: II TMD: 3 Fingerbreadths Neck Extension: Fair Teeth: Chipped Teeth/Crowns Overall Assessment: May Be Diff Mask Vent., May Be Diff Intubation ASA: 3 Plan Anesthesia Plan: MAC Discussion Discussed risks/options/alternatives of anesthesia and questions answered. Patient consents. Nursing pain assessment noted. Present: Family Member Attestation Statement Prior to the delivery of any anesthetic medication, I examined the patient, developed the plan, obtained the patient's consent and discussed the risk and benefits of the procedure with the patient/guardian. SHERYL CHRISTY CRNA Jan 07, 2017 13:12
[2017-01-07] MEDS ORDERED: BRIMONIDINE 0.2% EYE DROPS 5ml BOTH EYES ONE (14:00)
[2017-01-07] MEDS ORDERED: NS FOR INJ. 20 ML VIAL INJ ONE (14:00)
[2017-01-07] MEDS ORDERED: CYCLOPENTOLATE 1% EYE DROPS 2 ML BOTTLE RIGHT EYE ONE (14:00)
[2017-01-07] MEDS ORDERED: PROPARACAINE 0.5% EYE DROPS 15ml OP ONE (14:00)
[2017-01-07] MEDS ORDERED: NEPAFENAC 0.1% EYE DROPS 3ml OP ONE (14:00)
[2017-01-07] MEDS ORDERED: VANCOMYCIN 500 MG INJECTION IR ONE (14:00)
[2017-01-07] MEDS ORDERED: LIDOCAINE 1% (10mg/ml) 30ml SDV IJ ONE (14:00)
[2017-01-07] MEDS ORDERED: TROPICAMIDE 1% EYE DROPS 3ml OP ONE (14:00)
[2017-01-07] MEDS ORDERED: TETRACAINE 0.5% EYE DROPS 4ml BOTTLE OP ONE (14:00)
[2017-01-07] MEDS ORDERED: MOXIFLOXACIN 0.5% EYE DROPS 3ml BOTH EYES ONE (14:00)
[2017-01-07] MEDS ORDERED: SALINE FLUSH 10ml SYRINGE ONE (14:18)
[2017-01-07] MEDS ORDERED: MIDAZOLAM 2mg/2ml INJECTION ONE (14:18)
[2017-01-07 14:46] VITALS: BP 117/63; PULSE 87; RESP 16; TEMP 97.7; O2SAT 96
--- NOTE | 2017-01-07 14:48 | ANESPO ---
Post-Op Note Date 01/07/17 Time: 14:47 Status Pt Participated in Evaluation: Pt participated in person Vital Signs Date Time Temp Pulse Resp B/P Pulse Ox O2 Delivery O2 Flow Rate FiO2 01/07/17 11:55 98.2 92 18 137/88 93 Room Air Respiratory Function: Airway patent, Regular respirations Cardiovascular Function: Irregular pulse Mental Status: Alert/oriented Pain Level Intensity: 0 Hydration: Taking po fluids Complications during Recovery None apparent Follow-Up Instructions Instructions Per Surgeon SHERYL CHRISTY I SECURITY OPERATIONS SPECIALIST Jan 07, 2017 14:48
[2017-01-07 15:00] VITALS: BP 117/63; PULSE 82; RESP 15; O2SAT 91
[2017-01-07 15:15] VITALS: BP 123/64; PULSE 81; RESP 16; O2SAT 91
[2017-01-07] MEDS ORDERED: ACETAMINOPHEN 500 MG TABLET PO ONE (15:15)
[2017-01-07 15:30] VITALS: BP 110/54; PULSE 82; RESP 18; O2SAT 92
[2017-01-07 15:45] VITALS: BP 116/56; PULSE 78; RESP 19; O2SAT 90
[2017-01-07] MEDS ORDERED: TETRACAINE 0.5% EYE DROPS 4ml BOTTLE RIGHT EYE PRN (16:00)
[2017-01-07] MEDS ORDERED: LIDOCAINE 1% (10mg/ml) 2ml SDV INJ ONE (16:00)
--- NOTE | 2017-01-12 11:38 | OPNOTEF ---
DATE OF PROCEDURE 01/07/2017 PREOPERATIVE DIAGNOSIS Cataract, right eye. POSTOPERATIVE DIAGNOSIS Cataract, right eye. PROCEDURE Phacoemulsification with implantation of 17.5 diopter intraocular lens model SA60AT, right eye. ANESTHESIA Topical block monitored by Rodríguez Garland CRNA. SURGEON Mahi Gonzalez MD PROCEDURE IN DETAIL The patient came to the [facility] and was escorted to the preanesthesia area where the appropriate monitoring, eyedrops, and topical anesthetic were administered. The patient was then taken into the operating room and the eye was prepped and draped in the standard sterile manner for ophthalmic surgery. A lid speculum was placed between the lids and the eye was irrigated with 5% Povidine iodine solution, followed by copious irrigation with sterile balanced salt solution after three minutes. The eye surgery began with the initial side port incision through the peripheral clear cornea. Lidocaine preservative free 1% was injected into the anterior chamber. Viscoelastic was exchanged for aqueous. A clear cornea incision was made just anterior to the vascular arcade with a steel keratome blade. A continuous curvilinear anterior capsulorrhexis was performed, followed by hydrodissection and hydrodelineation of the cataract. The phacoemulsification tip was then inserted through the incision into the anterior chamber, and the nucleus of the cataract was emulsified. The remaining cortical material was then aspirated and the posterior capsule was cleaned and polished. A posterior chamber intraocular lens was then implanted into the capsular bag with viscoelastic support. The viscoelastic was then removed from the eye by aspiration. The clear cornea incision was inspected to ensure a water tight seal. The lid speculum was removed. Vigamox, Nevanac, and Brimonidine eyedrops were instilled onto the eye and an eye shield was taped over the eye. The patient was dismissed to the responsible green party with postoperative instructions and a planned follow-up visit. MICHELE
== END 2017-01-07 15:54 | disposition home or self-care (01) ==
LOC: NSC 11:37
PROVIDERS: ATTEND Ophthalmology
DX: H25.813 Combined forms of age-related cataract, bilateral (principal); H01.021 Squamous blepharitis right upper eyelid; H01.024 Squamous blepharitis left upper eyelid; E11.36 Type 2 diabetes mellitus with diabetic cataract; E66.01 Morbid (severe) obesity due to excess calories; Z68.43 Body mass index [BMI] 50.0-59.9, adult; I50.9 Heart failure, unspecified; I10 Essential (primary) hypertension; I48.91 Unspecified atrial fibrillation; Z79.84 Long term (current) use of oral hypoglycemic drugs; Z79.82 Long term (current) use of aspirin; Z79.899 Other long term (current) drug therapy
CPT/HCPCS: 66984; 82948; A9270; C1780; J2250; J3010; J3370

== ENCOUNTER 2017-02-11 10:33 | Day surgery (SDC) | payer MEDICARE, BC, MEDICAID ==
[2017-02-11] VITALS (7 sets, daily range): BP systolic 126–155; BP diastolic 61–92; PULSE 83–89; RESP 12–16; TEMP 97.6–97.9; O2SAT 83–92; Ht 165.1 cm; Wt 136.4 kg
[~2017-02-11] VITALS: Ht 165.1 cm; Wt 136.4 kg
[~2017-02-11 10:33] MED LIST changes: +ALBU2.5V2 AEROSOL; +BISA10SU16 RECTALLY; +CALC1TAB16 PO; +CAPS42.57 TOP; +DIPH25CA84 PO; -FENTANYL 100mcg/2ml INJECTION ONE; +HYDR-4246 PO; -LIDOCAINE JELLY 2% 30ml TUBE ONE; +LORA10TA7 PO; +MAGN400O4 PO; +ONDA4TAB4 PO; +POLY17PO6 PO
--- OUTSIDE RECORDS SUMMARY | 2017-02-11 10:37 | XMS REPORT | Continuity of Care Document ---
Author Author [facility] Organization [facility] Address Unknown Phone Unavailable Support Name Relationship Address Phone GAY ESCOBAR MD Caregiver Unknown Unavailable SOHAIL UNGER Next Of Kin Unknown [phone] Insurance Providers Guarantor Florina Unger Address [address] [place] [address] Email DENIED [address] [facility] [employer] Policy Number [id number] Subscriber's Name Florina Unger Hedy Relationship 18 Self Effective Date 16 Expiration Date 17 Payer [facility] Federal Policy Number [id number] Subscriber's Name Florina Unger Hedy Relationship 18 Self Group Number [id number] Payer Medicare Policy Number [id number] Subscriber's Name UngerFlorina Hedy Relationship 18 Self Advance Directives Directive Response Recorded Date/Time Ordered Resuscitation Status Full Code, unverified 01/06/17 11:31am Resuscitation Documents on File No 01/07/17 12:25pm DPOA for Healthcare Only No 01/07/17 12:25pm Living Will No 01/07/17 12:25pm Problems No problem information available. Medications Current Home Medications Medication Dose Units Route Directions Days Qty Instructions Start Date Acetaminophen/Hydrocodone Bitart ([place] 5-325 Tablet) 5-325 Tablet 1 Tab Oral Every 4 Hours Prn for Pain 60 01/06/17 Allopurinol 300 Mg Tablet 1 Tab Oral Daily 30 01/06/17 Aspirin (Aspir 81) 81 Mg Tablet. 1 Tab Oral Daily 01/06/17 Atorvastatin Calcium 20 Mg Tablet 1 Tab Oral Bedtime 01/06/17 Digoxin (Digox) 125 Mcg Tablet 1 Tab Oral Daily 30 01/06/17 Furosemide 40 Mg Tablet 1 Tab Oral Daily 60 01/06/17 Gabapentin 300 Mg Capsule 1 Cap Oral Twice A Day 60 01/06/17 Lisinopril 5 Mg Tablet 1 Tab Oral Daily 30 01/06/17 Lorazepam 1 Mg Tablet 1 Tab Oral Every 3 Days as needed for Anxiety 60 01/06/17 Magnesium Oxide 400 Mg Tablet 1 Tab Oral Twice A Day 60 Tablet Melatonin 3 Mg Tablet 1 Tab Oral Bedtime 30 Tablet 01/06/17 Metformin Hcl 850 Mg Tablet 1 Tab Oral Twice A Day 60 01/06/17 Metoprolol Tartrate 50 Mg Tablet 50 Mg Oral Give With Breakfast Take 1 tablet, by mouth, one time a day (with breakfast). 01/06/17 Ranitidine Hcl (Zantac) 150 Mg Tablet 150 Mg Oral Twice A Day for Acid Reflux Take 1 tablet, by mouth, 2 times a day. 01/06/17 Sertraline Hcl (Sertraline) 50 Mg Tablet 1 Tab Oral Daily 30 01/06 Tolterodine Tartrate (Tolterodine Tartrate Er) 4 Mg Cap.er.24h 1 Tab Oral Daily 60 01/06/17 Social History Social History Problem Response Recorded Date/Time Onset Date Status Chewing Tobacco Status No 01/07/2017 12:04pm Not Applicable Not Applicable Has the pt used tobacco in the last 12 months No 01/07/2017 12:04pm Not Applicable Not Applicable Query Response Start Date Stop Date Smoking Status Never smoker Hospital Discharge Instructions No hospital discharge instructions. Plan of Care Discharge Date 01/07/17 3:54pm Prescriptions See Medication Section Functional Status Query Response Date Recorded Ability to complete ADL's impeded by No change January 07, 2017 12:25pm Allergies, Adverse Reactions, Alerts Allergen Type Severity Reaction Status Last Updated Iron-dextran complex Allergy Unknown Active 01/06/17 Immunizations Query Response on File Recorded Date/Time Hx Influenza Vaccination Y fall 201501/07/17 12:04pm Hx Pneumococcal Vaccination N fall 201501/07/17 12:04pm Hx Influenza Vaccination Y fall 201501/07/17 12:04pm Vital Signs Acute Vital Signs Vital Response Date/Time Temperature (Fahrenheit) 97.7 deg F (96.8 - 99.1) 01/07/2017 2:46pm Temperature (Calculated Celsius) 36.23823 degrees C (36.0 - 37.3) 01/07/2017 2:46pm Temperature Source Temporal 01/07/2017 2:46pm Pulse Rate (adult) 78 bpm (60 - 100) 01/07/2017 3:45pm Respiratory Rate 19 breaths/min (10 - 20) 01/07/2017 3:45pm O2 Sat by Pulse Oximetry 90 % (90 - 100) 01/07/2017 3:45pm Oxygen Delivery Method Room Air 01/07/2017 3:45pm Blood Pressure 116/56 mm Hg 01/07/2017 3:45pm Blood Pressure Source Automatic Cuff 01/07/2017 3:45pm Height (Feet) 5 feet 01/07/2017 12:44pm Height (Inches) 5.00 inches 01/07/2017 12:44pm Weight (Kilograms) 136.300 kg 01/07/2017 12:44pm Body Mass Index (BMI) 50.0 01/07/2017 12:44pm Results Laboratory Results Test Name Result Units Flags Reference Collection Date/Time Result Date/ Time Comments Glucometer 171 mg/dL H 65-110 01/07/2017 11:57am 01/07/2017 12:06pm Procedures Procedure Status Date Provider(s) Cataract surgery Active 01/07/17 GAY ESCOBAR MD Encounters Encounter Location Arrival/Admit Date Discharge/Depart Date Attending Provider Departed Surgical Day Care [facility] 01/07/17 11:37am 01/07/17 3 :54pm GAY ESCOBAR MD
--- OUTSIDE RECORDS SUMMARY | 2017-02-11 10:38 | XMS REPORT | Continuity of Care Document ---
Author Author [facility] Organization [facility] Address Unknown Phone Unavailable Allergies Active Description [...] Moe MD Final 401.9 HYPERTENSION NOS 10/20/2012 Huebr Moe MD 782.0 SKIN SENSATION DISTURB 10/20/2012 [...] Procedures Code [place] [address] DIAGNOSTIC COLONOSCOPY Tanya Aceves MD 11/12/2012 Results Encounters ACCT No. Visit Date/Time Discharge Status Pt. Type Provider Facility Loc./Unit Complaint [id number] 03/15/2014 14:20:00 2013 16:50:00 DIS Emergency Oumou Trevizo MD [facility] [id number] 12/18/2013 16:55:00 2013 18:24:00 DIS Emergency Sohail Hua MD [facility] [id number] 02/02/2013 14:00:00 2012 23:59:59 CLS Outpatient [id number] 01/17/2013 14:10:00 2012 23:59:59 CLS Outpatient [id number] 01/11/2013 11:30:00 2012 23:59:59 CLS Outpatient [id number] 12/20/2012 13:58:00 2012 15:54:00 DIS Emergency Nain Simmons MD [facility] [id number] 12/06/2012 15:20:00 2012 23:59:59 CLS Outpatient [id number] 11/12/2012 06:20:00 2012 10:00:00 DIS Outpatient Tanya Aceves MD [facility] [address] [facility] [id number] 10/20/2012 13:39:00 2011 16:52:00 DIS Emergency Huber Moe MD [facility]
[2017-02-11] MEDS: CYCLOPENTOLATE 2% EYE DROPS 2ml LEFT EYE SCH ×3 (11:49→12:14)
[2017-02-11] MEDS: TROPICAMIDE 1% EYE DROPS 3ml LEFT EYE SCH ×3 (11:49→12:15)
[2017-02-11] MEDS: MOXIFLOXACIN 0.5% EYE DROPS 3ml LEFT EYE SCH ×3 (11:49→12:15)
[2017-02-11] MEDS: PHENYLEPHRINE 2.5% EYE DROPS 5ml LEFT EYE SCH ×3 (11:50→12:15)
[2017-02-11] MEDS: PROPARACAINE 0.5% EYE DROPS 15ml LEFT EYE SCH ×3 (11:50→12:15)
[2017-02-11] MEDS: NEPAFENAC 0.1% EYE DROPS 3ml LEFT EYE SCH ×3 (11:50→12:15)
--- NOTE | 2017-02-11 11:54 | ANESPREOP ---
Anesthesia Record Date and Time DATE: 02/11/17 TIME: 11:44 Proposed Surgical Procedure PE W/IOL OS NPO since: mn Allergies: Coded Allergies: iron dextran complex (Unverified Allergy, Unknown, 01/06/17) Ht/Wt/BMI Height: 5 ' 5.00 " Weight: 136.360 kg BMI: 50.0 kg/m2 Vital Signs Date Time Temp Pulse Resp B/P Pulse Ox O2 Delivery O2 Flow Rate FiO2 02/11/17 11:37 97.9 83 16 141/92 83 Room Air Medications Inpatient Medications Current Medications Medications (Trade) Dose Ordered Sig/Maribel Start Time Stop Time Status Last Admin Dose Admin Cyclopentolate HCl (Cyclogyl 2%) 1 drop Q5M 02/11/17 16:30 02/11/17 16:41 Tropicamide (Mydriacyl 1% Eye Drops) 1 drop Q5M 02/11/17 16:30 02/11/17 16:41 Proparacaine HCl (Alcaine 0.5% Eye Drops) 1 drop Q5M 02/11/17 16:30 02/11/17 16:41 Phenylephrine HCl (Wan-Synephrine 2.5% Eye Drops) 1 drop Q5M 02/11/17 16:30 02/11/17 16:41 Tetracaine HCl (Tetracaine 0.5% Eye Drops) 1 drop PRN PRN 02/11/17 16:30 Moxifloxacin HCl (Vigamox) 1 drop Q5M 02/11/17 16:30 02/11/17 16:41 Nepafenac 1 drop 1 drop Q5M 02/11/17 16:30 02/11/17 16:41 Lactated Ringer's (Lactated Ringers) 1,000 ml @ 50 mls/hr Q20H 02/11/17 16:28 Albuterol Sulfate (Albuterol Sulfate) 2.5 Mg/0.5 Ml Vial.neb, 2.5 MG AEROSOL RTQ4WA, (Reported) Allopurinol (Allopurinol) 300 Mg Tablet, 1 TAB PO DAILY, (Reported) Aspirin (Aspir 81) 81 Mg Tablet.dr, 1 TAB PO DAILY, (Reported) Atorvastatin Calcium (Atorvastatin Calcium) 20 Mg Tablet, 1 TAB PO HS, (Reported ) Bisacodyl (Bisac-Evac) 10 Mg Supp.rect, 1 SUPP RECTALLY for CONSTIPATION, ( Reported) Calcium Carbonate (Calcium Carbonate) 500 Mg Tablet, 2 TAB PO Q4HPRN, (Reported) Capsaicin (Capsaicin) 42.5 Gm Cream..g., 1 APPLIC TOP PRN PRN for PAIN, ( Reported) Digoxin (Digox) 125 Mcg Tablet, 1 TAB PO DAILY, (Reported) Diphenhydramine HCl (Benadryl) 25 Mg Capsule, 1 CAP PO Q8H PRN for ITCHING, ( Reported) Furosemide (Furosemide) 40 Mg Tablet, 1 TAB PO BID, (Reported) Gabapentin (Gabapentin) 300 Mg Capsule, 1 CAP PO BID, (Reported) Hydrocodone/Acetaminophen (Sodus 5-325 Tablet) 5-325 Tablet, 2 TAB PO HS, ( Reported) Hydrocodone/Apap (Sodus 5-325 Tablet) 5-325 Tablet, 1 TAB PO Q4HPRN, (Reported) Lisinopril (Lisinopril) 5 Mg Tablet, 1 TAB PO DAILY, (Reported) Loratadine (Loratadine) 10 Mg Tablet, 10 MG PO ACB, (Reported) Take 1 tablet, by mouth, one time a day (before breakfast). Lorazepam (Lorazepam) 1 Mg Tablet, 1 TAB PO BID PRN for ANXIETY, (Reported) Magnesium Hydroxide (Milk of Magnesia) 400 Mg/5 Ml Oral.susp, 30 ML PO PRN PRN for CONSTIPATION, (Reported) Magnesium Oxide (Magnesium Oxide) 400 Mg Tablet, 1 TAB PO BID, (Reported) Melatonin (Melatonin) 3 Mg Tablet, 2 TAB PO HS, (Reported) Metformin HCl (Metformin HCl) 850 Mg Tablet, 1 TAB PO BID, (Reported) Metoprolol Tartrate (Metoprolol Tartrate) 50 Mg Tablet, 50 MG PO BID, (Reported) Take 1 tablet, by mouth, one time a day (with breakfast). Ondansetron HCl (Zofran) 4 Mg Tablet, 4 MG PO Q6H, (Reported) Polyethylene Glycol 3350 (Miralax) 17 Gm Powd.pack, 17 G PO DAILY PRN for CONSTIPATION, (Reported) Take 17 Grams (1 capful), by mouth, once a day. Ranitidine HCl (Zantac) 150 Mg Tablet, 150 MG PO BID, (Reported) Take 1 tablet, by mouth, 2 times a day. Sertraline (Sertraline) 50 Mg Tablet, 1 TAB PO DAILY, (Reported) Tolterodine Tartrate (Tolterodine Tartrate ER) 4 Mg Cap.er.24h, 1 TAB PO DAILY, (Reported) Currently on Beta Noel: Yes Medical/Surgical History Anesthesia PMH: Reports: *Diabetes (TYPE 2 PER H&P, blood sugar 132), *Dyspnea (WITH EXERTION, can ambulate 13 feet, METS < ), *Hypertension, Arthritis (OA PER H&P), Asthma, CHF (PER H&P), COPD, Cancer (COLON, 2004), Cardiac Arrythmia ( history of A Fib), Obesity (morbidly obese), Renal Disease (history of kidney stones) Smoking Status: Never smoker Use Chewing Tobacco?: No Second Hand Exposure: No Substance Use Type: does not use Alcohol Intake: none Past Surgical History Orthopedic Surgeries: No Abdominal Surgeries: Yes - GLENN, COLON RESECTION Genitourinary Surgeries: Yes - STENTS X3 Cardiac Surgeries: Endocrine Surgeries: Reproductive Surgeries: Yes - HYSTERECTOMY, BREAST BX Neurological Surgeries: Ear Surgeries: Nose Surgeries: Throat Surgeries: Other Surgeries: Yes - HYSTERECTOMY Anesthesia Adverse Reactions: FOUND none Family Hx of Anesthesia Advers: none Hx of Motion Sickness: No Pertinent Findings EKG Rhythm: Atrial Fibrillation Physical Exam Respiratory: Lungs clear Cardiovascular: FOUND Irregularly irregular, FOUND Systolic murmur Airway Assessment Mallampati Score: II TMD: 2 Fingerbreadths Neck Extension: Fair Teeth: Chipped Teeth/Crowns, Poor Dentation Overall Assessment: No Airway Concerns ASA: 4 Plan Anesthesia Plan: MAC Discussion Discussed risks/options/alternatives of anesthesia and questions answered. Patient consents. Nursing pain assessment noted. Attestation Statement Prior to the delivery of any anesthetic medication, I examined the patient, developed the plan, obtained the patient's consent and discussed the risk and benefits of the procedure with the patient/guardian. YAIMA TILLMAN CRNA Feb 11, 2017 11:49
[2017-02-11] MEDS ORDERED: MIDAZOLAM 2mg/2ml INJECTION ONE (13:42)
--- NOTE | 2017-02-11 14:22 | ANESPO ---
Post-Op Note Date 02/11/17 Time: 14:21 Status Vital Signs Date Time Temp Pulse Resp B/P Pulse Ox O2 Delivery O2 Flow Rate FiO2 02/11/17 11:37 97.9 83 16 141/92 83 Room Air Respiratory Function: Airway patent, Regular respirations Cardiovascular Function: Irregular pulse Mental Status: Alert/oriented Pain Level Intensity: 0 Hydration: Taking po fluids Complications during Recovery None apparent Post-Anesthesia Notes pt. luis m.well Follow-Up Instructions Instructions Per Surgeon Additional Information none SARANYA LI CRNA Feb 11, 2017 14:22
--- NOTE | 2017-02-11 16:05 | NUR ---
report Report to Soraida Cleary LPN at [facility] re: patient is enroute to nursing facility with oliva Augustine. Reported pt was stable and had cataract surgery on her left eye with no difficulty. reported pt had versed 1 mg as the only meds she was given while she was here. Instructed Soraida on postop instructions and return appt as directed in the instruction sheet sent with Sohail , the transporter driver.
[2017-02-11] MEDS ORDERED: LR 1,000 ML IV SCH (16:28)
[2017-02-11] MEDS ORDERED: LIDOCAINE 1% (10mg/ml) 2ml SDV INJ ONE (16:30)
[2017-02-11] MEDS ORDERED: TETRACAINE 0.5% EYE DROPS 4ml BOTTLE LEFT EYE PRN (16:30)
[2017-02-11] MEDS ORDERED: BRIMONIDINE 0.2% EYE DROPS 5ml BOTH EYES ONE (16:39)
--- NOTE | 2017-02-12 11:27 | OPNOTEF ---
DATE OF PROCEDURE 02/11/2017 PREOPERATIVE DIAGNOSIS Cataract, left eye. POSTOPERATIVE DIAGNOSIS Cataract, left eye. PROCEDURE Phacoemulsification with implantation of 17.5 diopter intraocular lens model SA60AT, left eye. ANESTHESIA Topical block monitored by José Luis Gomez CRNA. SURGEON Mahi Gonzalez MD PROCEDURE IN DETAIL The patient came to the [facility] and was escorted to the preanesthesia area where the appropriate monitoring, eyedrops, and topical anesthetic were administered. The patient was then taken into the operating room and the eye was prepped and draped in the standard sterile manner for ophthalmic surgery. A lid speculum was placed between the lids and the eye was irrigated with 5% Povidine iodine solution, followed by copious irrigation with sterile balanced salt solution after three minutes. The eye surgery began with the initial side port incision through the peripheral clear cornea. Lidocaine preservative free 1% was injected into the anterior chamber. Viscoelastic was exchanged for aqueous. A clear cornea incision was made just anterior to the vascular arcade with a steel keratome blade. A continuous curvilinear anterior capsulorrhexis was performed, followed by hydrodissection and hydrodelineation of the cataract. The phacoemulsification tip was then inserted through the incision into the anterior chamber, and the nucleus of the cataract was emulsified. The remaining cortical material was then aspirated and the posterior capsule was cleaned and polished. A posterior chamber intraocular lens was then implanted into the capsular bag with viscoelastic support. The viscoelastic was then removed from the eye by aspiration. The clear cornea incision was inspected to ensure a water tight seal. The lid speculum was removed. Vigamox, Nevanac, or Brimonidine eyedrops were instilled onto the eye and an eye shield was taped over the eye. The patient was dismissed to the responsible republican with postoperative instructions and a planned follow-up visit. MICHELE
== END 2017-02-11 16:05 | disposition home or self-care (01) ==
LOC: NSC 10:33
PROVIDERS: ATTEND Ophthalmology
DX: H25.812 Combined forms of age-related cataract, left eye (principal); Z96.1 Presence of intraocular lens; E11.9 Type 2 diabetes mellitus without complications; E66.01 Morbid (severe) obesity due to excess calories; Z68.43 Body mass index [BMI] 50.0-59.9, adult; I50.9 Heart failure, unspecified; I10 Essential (primary) hypertension; Z79.899 Other long term (current) drug therapy; Z79.84 Long term (current) use of oral hypoglycemic drugs; Z79.82 Long term (current) use of aspirin
CPT/HCPCS: 66984; 82948; A9270; C1780; J2250